=== PATIENT | female | born 1940 | race Caucasian/White ===

== ENCOUNTER 2017-04-27 10:54 | Day surgery (SDC) | payer MEDICARE, OTHER ==
[~2017-04-27] VITALS: Ht 154.9 cm; Wt 50.7 kg
[~2017-04-27 10:54] MED LIST: ASPIRIN E.C. 8181 MG PO; CALCIUM CARBON650 M2 PO; FOSAMAX 70MG TA70 MG PO; GLUCOSAMINE & C1 CA2 PO; LUTEIN6 MG PO; OMEGA-3 1000 MG1 CAP PO
[2017-04-27 11:34] VITALS: BP 129/59; PULSE 57; TEMP 97.7
[2017-04-27 14:45] VITALS: BP 153/78; PULSE 62
[2017-04-27 15:00] VITALS: BP 138/75; PULSE 58; TEMP 97.5
[2017-04-27 15:15] VITALS: BP 158/70; PULSE 64
[2017-04-27] MEDS ORDERED: SENOKOT S 50 MG1 TAB PO (15:16)
[2017-04-27] MEDS ORDERED: NORCO 325 MG-51 TAB PO (15:16)
[2017-04-27] MEDS ORDERED: PYRIDIUM 100MG100 MG PO (15:17)
[2017-04-27 15:30] VITALS: BP 139/75; PULSE 62
== END 2017-04-27 16:53 | disposition home or self-care (01) ==
LOC: SDCO 10:54
DX: C67.4 Malignant neoplasm of posterior wall of bladder (principal); Z79.82 Long term (current) use of aspirin; Z87.891 Personal history of nicotine dependence; M81.0 Age-related osteoporosis without current pathological fracture; Z80.0 Family history of malignant neoplasm of digestive organs; Z80.3 Family history of malignant neoplasm of breast; Z85.9 Personal history of malignant neoplasm, unspecified; M19.90 Unspecified osteoarthritis, unspecified site
CPT/HCPCS: J0360; J0690; J1100; J2270; J2405; J2704; J3010; J7120; Q9967

== ENCOUNTER 2017-12-29 12:00 | Day surgery (SDC) | payer MEDICARE, OTHER ==
[~2017-12-29] VITALS: Ht 154.9 cm; Wt 51.0 kg
[~2017-12-29 12:00] MED LIST changes: +NORCO 325 MG-51 TAB PO; +PYRIDIUM 100MG100 MG PO; +SENOKOT S 50 MG1 TAB PO
[2017-12-29 12:19] VITALS: BP 142/71; PULSE 61; TEMP 97.7
[2017-12-29] MEDS ORDERED: FOSAMAX 70MG TA70 MG PO (12:19)
[2017-12-29 15:40] VITALS: BP 144/77; PULSE 71; TEMP 97.3
[2017-12-29 15:55] VITALS: BP 155/82; PULSE 65
[2017-12-29 16:10] VITALS: BP 148/74; PULSE 58
[2017-12-29 16:25] VITALS: BP 146/73; PULSE 60
[2017-12-29 16:50] VITALS: BP 145/65; PULSE 60
== END 2017-12-29 17:10 | disposition home or self-care (01) ==
LOC: SDCO 12:00
DX: C67.9 Malignant neoplasm of bladder, unspecified (principal); M19.90 Unspecified osteoarthritis, unspecified site; Z90.710 Acquired absence of both cervix and uterus; Z85.828 Personal history of other malignant neoplasm of skin; Z79.82 Long term (current) use of aspirin; Z80.3 Family history of malignant neoplasm of breast; Z80.0 Family history of malignant neoplasm of digestive organs
CPT/HCPCS: C1769; J0690; J7120; Q9967